=== PATIENT | male | born 1950 | race Caucasian/White ===

== ENCOUNTER 2018-08-28 15:06 | Emergency (ER) | payer BC, MEDICARE ==
[~2018-08-28] VITALS: Ht 172.7 cm; Wt 79.4 kg
--- NOTE | 2018-08-28 15:31 | PHYS DOC ---
Adult General Chief Complaint Chief Complaint: HEADACHE HPI HPI Patient is a 68 year old male who presents with fell 6 days ago on Wednesday when he was taking the trash outside in the last thing he remembers. Patient states that he remembers inside and he is all wet because a neighbor who brought him inside. Patient states he fell and he hit his head and he did have a lump any tender spot on the left back of his head but is no longer there. Patient now complains of a headache a 5 out of 10 and states occasionally when he stands he becomes dizzy but it clears quickly. Patient states that on Wednesday he vomited once and today he's vomited once. Patient states that the headache is a proper ache in the frontal area of his head mainly in the forehead area. (LUCY CASTRO LACQUER SPRAYER) Review of Systems Review of Systems Constitutional: Denies fever or chills [] Eyes: Denies change in visual acuity, redness, or eye pain [] HENT: Denies nasal congestion or sore throat [] Respiratory: Denies cough or shortness of breath [] Cardiovascular: No additional information not addressed in HPI [] GI: Denies abdominal pain. +nausea, +vomiting, denies bloody stools or diarrhea [] : Denies dysuria or hematuria [] Musculoskeletal: Slight left neck pain with movement. Denies back pain or joint pain [] Integument: Denies rash or skin lesions [] Neurologic: headache, denies focal weakness or sensory changes [] All other systems were reviewed and found to be within normal limits, except as documented in this note. (LUCY CASTRO APRN) Physical Exam Physical Exam Constitutional: Well developed, well nourished, no acute distress, non-toxic appearance. [] HENT: Normocephalic, atraumatic, bilateral external ears normal, oropharynx moist, no oral exudates, nose normal. [] Eyes: PERRLA, EOMI, conjunctiva normal, no discharge. [] Neck: Normal range of motion, no tenderness, supple, no stridor. [] Cardiovascular:Heart rate regular rhythm, no murmur [] Lungs & Thorax: Bilateral breath sounds clear to auscultation [] Abdomen: Bowel sounds normal, soft, no tenderness, no masses, no pulsatile masses. [] Skin: Warm, dry, no erythema, no rash. [] Back: No tenderness, no CVA tenderness. [] Extremities: No tenderness, no cyanosis, no clubbing, ROM intact, no edema. [] Neurologic: Alert and oriented X 3, normal motor function, normal sensory function, no focal deficits noted. [] Psychologic: Affect normal, judgement normal, mood normal. Normal Physical Exam [] (BAFUS,LUCY M LACQUER SPRAYER) Current Patient Data Vital Signs Vital Signs Date Time Temp Pulse Resp B/P (MAP) Pulse Ox O2 Delivery O2 Flow Rate FiO2 08/28/18 16:00 62 96 08/28/18 15:20 98.7 16 160/77 (104) Room Air 98.7 (BOYD,C9 [employer] DO) Lab Values Laboratory Tests Test 08/28/18 16:20 White Blood Count 13.1 x10^3/uL (4.0-11.0) H Red Blood Count 4.80 x10^6/uL (4.30-5.70) Hemoglobin 14.2 g/dL (13.0-17.5) Hematocrit 42.2 % (39.0-53.0) Mean Corpuscular Volume 88 fL (79-100) Mean Corpuscular Hemoglobin 30 pg (25-35) Mean Corpuscular Hemoglobin Concent 34 g/dL (31-37) Red Cell Distribution Width 13.2 % (11.5-14.5) Platelet Count 291 x10^3/uL (140-400) Neutrophils (%) (Auto) 83 % (31-73) H Lymphocytes (%) (Auto) 11 % (24-48) L Monocytes (%) (Auto) 6 % (0-9) Eosinophils (%) (Auto) 0 % (0-3) Basophils (%) (Auto) 0 % (0-3) Neutrophils # (Auto) 10.8 x10^3uL (1.8-7.7) H Lymphocytes # (Auto) 1.4 x10^3/uL (1.0-4.8) Monocytes # (Auto) 0.8 x10^3/uL (0.0-1.1) Eosinophils # (Auto) 0.0 x10^3/uL (0.0-0.7) Basophils # (Auto) 0.0 x10^3/uL (0.0-0.2) Prothrombin Time 13.7 SEC (11.7-14.0) Prothrombin Time INR 1.1 (0.8-1.1) Sodium Level 136 mmol/L (136-145) Potassium Level 3.8 mmol/L (3.5-5.1) Chloride Level 94 mmol/L (98-107) L Carbon Dioxide Level 30 mmol/L (21-32) Anion Gap 12 (6-14) Blood Urea Nitrogen 18 mg/dL (8-26) Creatinine 0.9 mg/dL (0.7-1.3) Estimated GFR (Cockcroft-Gault) 83.4 BUN/Creatinine Ratio 20 (6-20) Glucose Level 181 mg/dL (70-99) H Calcium Level 9.7 mg/dL (8.5-10.1) Total Bilirubin 1.4 mg/dL (0.2-1.0) H Aspartate Amino Transferase (AST) 15 U/L (15-37) Alanine Aminotransferase (ALT) 20 U/L (16-63) Alkaline Phosphatase 93 U/L (46-116) Troponin I Quantitative < 0.017 ng/mL (0.000-0.055) Total Protein 7.4 g/dL (6.4-8.2) Albumin 3.4 g/dL (3.4-5.0) Albumin/Globulin Ratio 0.9 (1.0-1.7) L Laboratory Tests 08/28/18 16:20 Laboratory Tests 08/28/18 16:20 (BHARTI BOYD DO) Lab Values Laboratory Tests Test 08/28/18 16:20 White Blood Count 13.1 x10^3/uL (4.0-11.0) H Red Blood Count 4.80 x10^6/uL (4.30-5.70) Hemoglobin 14.2 g/dL (13.0-17.5) Hematocrit 42.2 % (39.0-53.0) Mean Corpuscular Volume 88 fL (79-100) Mean Corpuscular Hemoglobin 30 pg (25-35) Mean Corpuscular Hemoglobin Concent 34 g/dL (31-37) Red Cell Distribution Width 13.2 % (11.5-14.5) Platelet Count 291 x10^3/uL (140-400) Neutrophils (%) (Auto) 83 % (31-73) H Lymphocytes (%) (Auto) 11 % (24-48) L Monocytes (%) (Auto) 6 % (0-9) Eosinophils (%) (Auto) 0 % (0-3) Basophils (%) (Auto) 0 % (0-3) Neutrophils # (Auto) 10.8 x10^3uL (1.8-7.7) H Lymphocytes # (Auto) 1.4 x10^3/uL (1.0-4.8) Monocytes # (Auto) 0.8 x10^3/uL (0.0-1.1) Eosinophils # (Auto) 0.0 x10^3/uL (0.0-0.7) Basophils # (Auto) 0.0 x10^3/uL (0.0-0.2) Prothrombin Time 13.7 SEC (11.7-14.0) Prothrombin Time INR 1.1 (0.8-1.1) Sodium Level 136 mmol/L (136-145) Potassium Level 3.8 mmol/L (3.5-5.1) Chloride Level 94 mmol/L (98-107) L Carbon Dioxide Level 30 mmol/L (21-32) Anion Gap 12 (6-14) Blood Urea Nitrogen 18 mg/dL (8-26) Creatinine 0.9 mg/dL (0.7-1.3) Estimated GFR (Cockcroft-Gault) 83.4 BUN/Creatinine Ratio 20 (6-20) Glucose Level 181 mg/dL (70-99) H Calcium Level 9.7 mg/dL (8.5-10.1) Total Bilirubin 1.4 mg/dL (0.2-1.0) H Aspartate Amino Transferase (AST) 15 U/L (15-37) Alanine Aminotransferase (ALT) 20 U/L (16-63) Alkaline Phosphatase 93 U/L (46-116) Troponin I Quantitative < 0.017 ng/mL (0.000-0.055) Total Protein 7.4 g/dL (6.4-8.2) Albumin 3.4 g/dL (3.4-5.0) Albumin/Globulin Ratio 0.9 (1.0-1.7) L Laboratory Tests 08/28/18 16:20 Laboratory Tests 08/28/18 16:20 (LUCY CASTRO APRN) EKG EKG Sinus Rhythm, Right Bundle Branch Block, No STEMI[] Interpretation Time: [address] Boyd (LUCY CASTRO APRN) Radiology/Procedures Radiology/Procedures CT head, cervical spine (LUCY CASTRO APRN) Impressions: [place] [id number] IMAGING REPORT Signed PATIENT: NATALIA WINKLER ACCOUNT: [id number] : 1950 LOCATION: ER AGE: 68 SEX: M EXAM STATUS: PRE ER ORD. PHYSICIAN: LUCY ACSTRO APRN REASON: fall/ W/ NURSE @ 1540 PROCEDURE: CHEST PA & LATERAL PA and lateral chest. HISTORY: Fall PA and lateral views were taken of the chest. There is no pneumothorax or pleural effusion. There is mild linear atelectasis in the left lung base without other infiltrates. There is no effusion. Heart is normal in size. IMPRESSION: 1. Poor inspiration with mild linear atelectasis. 2. No definite infiltrates. Electronically signed by: Jaguar Goldstein MD (08/28/2018 4:09 PM) [facility] DICTATED and SIGNED BY: JAGUAR GOLDSTEIN MD DATE: 08/28/[address] [address] IMAGING REPORT Signed PATIENT: NATALIA WINKLER ACCOUNT: [id number] : 1950 LOCATION: ER AGE: 68 SEX: M EXAM STATUS: REG ER ORD. PHYSICIAN: LUCY CASTRO APRN REASON: fall PROCEDURE: CT HEAD AND CERVICAL SPINE WO CT head without contrast: Reason for examination: Fell one week ago with head injury, loss of consciousness and headaches. Axial images were obtained through the brain. No contrast was administered. The ventricular systems are symmetric and not abnormally dilated considering patient's advanced age. No midline shift is seen. There is no evidence of intracranial hemorrhage, infarct, mass or edema. No abnormalities are seen at the visualized portions of the orbits. The paranasal sinuses and mastoid air cells are clear. There appears to be a linear nondisplaced fracture involving the left occipital bone. There appears to be a scalp hematoma in the left parietal convexity posteriorly. IMPRESSION: No acute intracranial abnormality evident. Nondisplaced linear skull fracture in the left occipital bone. Scalp hematoma in the left posterior parietal convexity. CT cervical spine without contrast: Helical images were obtained through the cervical spine from skull base to the thoracic apices. Reconstruction was performed in sagittal and coronal planes. No contrast was administered. The C1 ring is intact. The odontoid process appears to be intact and normally centered between the lateral masses of C1. The vertebral bodies of the cervical spine are normally aligned anteriorly and posteriorly with no acute fracture or subluxation seen. The posterior elements appear to be intact. There are some degenerative changes at the C6-7 disc level with hypertrophic spurring off the endplates with some hypertrophic spurs encroaching on the left neural foramen with severe stenosis. The remaining intervertebral discs are maintained. No other site of spinal stenosis is seen. IMPRESSION: No acute abnormality evident in the cervical spine. Severe degenerative spondylosis at the C6-7 disc level with hypertrophic spurs encroaching on the left neural foramen causing severe stenosis. Exposure: One or more of the following individualized dose reduction techniques were utilized for this examination: 1. Automated exposure control 2. Adjustment of the mA and/or kV according to patient size 3. Use of iterative reconstruction technique. Electronically signed by: Marya Fajardo MD (08/28/2018 4:22 PM) [facility] DICTATED and SIGNED BY: MARYA FAJARDO MD DATE: 08/28/18 1609 (LUCY CATSRO APRN) Course & Med Decision Making Course & Med Decision Making Patient is a 68 year old male who presents with fell 6 days ago on Wednesday when he was taking the trash outside in the last thing he remembers. Patient states that he remembers inside and he is all wet because a neighbor who brought him inside. Patient states he fell and he hit his head and he did have a lump any tender spot on the left back of his head but is no longer there. Patient now complains of a headache a 5 out of 10 and states occasionally when he stands he becomes dizzy but it clears quickly. Patient states that on Wednesday he vomited once and today he's vomited once. Patient states that the headache is a proper ache in the frontal area of his head mainly in the forehead area. The only type of blood thinner the patient is on is a baby aspirin. Patient states he took ibuprofen today. Patient refuses any pain medication or nausea medicine this time. Patient states that his neck had been hurting him but that has gotten better too. Patient has no spinal focal bony tenderness and has full range of motion of his neck. PERRLA. Neurologically intact. Ambulatory with a steady gait. Vital signs within normal limits. Lungs are clear in all lobes. Abdomen is soft and nontender. Speaks in full clear sentences. Equal strength in all extremities. No nystagmus. Denies visual changes. Denies any other syncopal episodes since the fall. Denies any focal weaknesses or numbness and tingling. Denies chest pain, soa, syncope, numbness or tingling, pain with movement other than specified earlier. There is no bruising or deformity, tenderness or bumps felt on the patient's head anywhere or on his cervical, thoracic, lumbar spine. Alert and oriented. Skin pink warm and dry. Mucous membranes are moist. Patient and deny being forgetful or repeating himself since the fall. Patient is quick to answer all questions correctly. Chest xray shows 1. Poor inspiration with mild linear atelectasis. 2. No definite infiltrates. CT Head and cervical spine show No acute intracranial abnormality evident. Nondisplaced linear skull fracture in the left occipital bone. Scalp hematoma in the left posterior parietal convexity. No acute abnormality evident in the cervical spine. Severe degenerative spondylosis at the C6-7 disc level with hypertrophic spurs encroaching on the left neural foramen causing severe stenosis. 1645: I have spoken to neurology surgeon Dr Chao's Nurse Practitioner Lisa who called Dr Chao and told him about the patient and the CT findings. Dr Chao states that he wants to have the patient follow-up next week and that he can go home but to keep all activities to a minimum and rest until he is seen. Patient will probably need a outpatient MRI for follow-up care. Nurse practitioner Lisa stated that she would call the patient tomorrow to set up an appointment. I will also give the patient the office number. Patient is stable and will be discharged home. Patient neurologic status remains unchanged. (LUCY CASTRO APRN) Dragon Disclaimer Dragon Disclaimer This electronic medical record was generated, in whole or in part, using a voice recognition dictation system. (LUCY CASTRO APRN) NIHSS Stroke Scale NIH Stroke Scale: NIH Stroke Scale Response (Comments) Value Level of Consciousness: 0 Alert/Responsive 0 LOC Questions: 0 Answers both correctly 0 LOC Commands: 0 Performs both tasks 0 Best Gaze: 0 Normal 0 Visual: 0 No visual loss 0 Facial Palsy: 0 Normal, symmetrical 0 Motor - Left Arm 0 No drift 0 Motor - Right Arm 0 No drift 0 Motor - Left Leg 0 No drift 0 Motor: Right Leg 0 No drift 0 Limb Ataxia: 0 Absent 0 Sensory: 0 No loss 0 Best Language: 0 Normal 0 Dysathria: 0 Normal 0 Extinction and Inattention: 0 Normal 0 Total 0 Departure Departure Impression: Primary Impression: Head injury Additional Impression: Skull fracture Disposition: 01 HOME, SELF-CARE Condition: STABLE Referrals: Jeremiah CASTREJON MD (PCP) Patient Instructions: Head Injury, Adult, Skull Fracture, Uncomplicated, Adult Additional Instructions: The neurosurgeon's office will call you tomorrow for a follow-up appointment and schedule for a outpatient MRI. If you do not hear from her tomorrow call . Do not do any activity around the house or heavy lifting. Complete rest. If he began to have intractable head pain, constant dizziness, syncope, intractable vomiting come to the emergency room immediately. Scripts Ondansetron (ONDANSETRON ODT) 4 Mg Tab.rapdis 1 TAB PO PRN Q6-8HRS, #16 TAB Prov: LUCY CASTRO APRN 08/28/18 Hydrocodone/Apap 5-325 (NORCO 5-325 TABLET) 1 Each Tablet 1 TAB PO PRN Q6HRS PRN for PAIN, #8 TAB 0 Refills Prov: LUCY CASTRO APRN 08/28/18 Attending Signature Attending Signature I have reviewed the PA/VIDEO GAME DESIGNER's note and plan of care. I was available for consultation as needed during the patient's visit in the emergency department. I agree with the clinical impression, plan, and disposition. (BHARTI BOYD DO) Problem Qualifiers Primary Impression: Head injury Encounter type: initial encounter Qualified Codes: S09.90XA - Unspecified injury of head, initial encounter Additional Impression: Skull fracture Encounter type: initial encounter Skull bone/location: occipital bone Fracture type: closed Occipital fracture type: unspecified fracture of occiput Laterality: left Qualified Codes: S02.119A - Unspecified fracture of occiput, initial encounter for closed fracture LUCY CASTRO APRN Aug 28, 2018 15:31 BHARTI BOYD DO Aug 29, 2018 17:57
[2018-08-28 16:00] VITALS: BP 153/77
--- NOTE | 2018-08-28 16:12 | RAD ---
PA and lateral chest. HISTORY: Fall PA and lateral views were taken of the chest. There is no pneumothorax or pleural effusion. There is mild linear atelectasis in the left lung base without other infiltrates. There is no effusion. Heart is normal in size. IMPRESSION: 1. Poor inspiration with mild linear atelectasis. 2. No definite infiltrates. Electronically signed by: Jaguar Goldstein MD (08/28/2018 4:09 PM) [facility]
--- NOTE | 2018-08-28 16:25 | RAD ---
CT head without contrast: Reason for examination: Fell one week ago with head injury, loss of consciousness and headaches. Axial images were obtained through the brain. No contrast was administered. The ventricular systems are symmetric and not abnormally dilated considering patient's advanced age. No midline shift is seen. There is no evidence of intracranial hemorrhage, infarct, mass or edema. No abnormalities are seen at the visualized portions of the orbits. The paranasal sinuses and mastoid air cells are clear. There appears to be a linear nondisplaced fracture involving the left occipital bone. There appears to be a scalp hematoma in the left parietal convexity posteriorly. IMPRESSION: No acute intracranial abnormality evident. Nondisplaced linear skull fracture in the left occipital bone. Scalp hematoma in the left posterior parietal convexity. CT cervical spine without contrast: Helical images were obtained through the cervical spine from skull base to the thoracic apices. Reconstruction was performed in sagittal and coronal planes. No contrast was administered. The C1 ring is intact. The odontoid process appears to be intact and normally centered between the lateral masses of C1. The vertebral bodies of the cervical spine are normally aligned anteriorly and posteriorly with no acute fracture or subluxation seen. The posterior elements appear to be intact. There are some degenerative changes at the C6-7 disc level with hypertrophic spurring off the endplates with some hypertrophic spurs encroaching on the left neural foramen with severe stenosis. The remaining intervertebral discs are maintained. No other site of spinal stenosis is seen. IMPRESSION: No acute abnormality evident in the cervical spine. Severe degenerative spondylosis at the C6-7 disc level with hypertrophic spurs encroaching on the left neural foramen causing severe stenosis. Exposure: One or more of the following individualized dose reduction techniques were utilized for this examination: 1. Automated exposure control 2. Adjustment of the mA and/or kV according to patient size 3. Use of iterative reconstruction technique. Electronically signed by: Theodora Castro MD (08/28/2018 4:22 PM) [facility]
[2018-08-28 16:27] LABS: BASO % 0 % (0-3); EOS % 0 % (0-3); HEMATOCRIT 42.2 % (39.0-53.0); HEMOGLOBIN 14.2 g/dL (13.0-17.5); LYMPH # 1.4 x10^3/uL (1.0-4.8); LYMPH % 11 % (24-48); MEAN CORPUSCULAR HEMOGLOBIN 30 pg (25-35); MEAN CORPUSCULAR HGB CONC 34 g/dL (31-37); MEAN CORPUSCULAR VOLUME 88 fL (79-100); MONO # 0.8 x10^3/uL (0.0-1.1); MONO % 6 % (0-9); NEUT # 10.8 x10^3uL (1.8-7.7); NEUT % 83 % (31-73); PLATELET COUNT 291 x10^3/uL (140-400); RED CELL DISTRIBUTION WIDTH 13.2 % (11.5-14.5); WHITE BLOOD COUNT 13.1 x10^3/uL (4.0-11.0)
[2018-08-28 16:35] LABS: CALCIUM 9.7 mg/dL (8.5-10.1); CREATININE 0.9 mg/dL (0.7-1.3); GFR 83.4; POTASSIUM 3.8 mmol/L (3.5-5.1)
[2018-08-28 16:36] LABS: PROTHROMBIN TIME PATIENT 13.7 SEC (11.7-14.0)
[2018-08-28 16:40] LABS: ALBUMIN 3.4 g/dL (3.4-5.0); ALBUMIN/GLOBULIN RATIO 0.9 (1.0-1.7); TOTAL BILIRUBIN 1.4 mg/dL (0.2-1.0); TOTAL PROTEIN 7.4 g/dL (6.4-8.2)
[2018-08-28] MEDS ORDERED: ONDA4TAB12 PO (17:15)
[2018-08-28] MEDS ORDERED: HYDR-3164 PO (17:15)
--- NOTE | 2018-08-29 14:37 | EKG ---
[facility] [address] [place] [address] Test Date: 2018-08-28 Test Time: 15:37:35 Pat Name: NATALIA WINKLER Department: Room: Gender: Chief Librarian Extension Department: : 1950 Requested By: LUCY CASTRO Order Number: [id number] Reading MD: Zaheer Barrios Measurements Intervals [place] Rate: P: ME: QRS: QRSD: T: QT: QTc: Interpretive Statements No previous ECG available for comparison Electronically Signed On 08-31-2018 9:01:48 MANAGER USER INTERFACE by Zaheer Barrios
== END 2018-08-28 17:30 | disposition home or self-care (01) ==
LOC: ER 15:06
DX: S02.119A Unspecified fracture of occiput, initial encounter for closed fracture (principal); M54.2 Cervicalgia; R42 Dizziness and giddiness; Z79.82 Long term (current) use of aspirin; W18.09XA Striking against other object with subsequent fall, initial encounter; Y93.89 Activity, other specified; Y92.89 Other specified places as the place of occurrence of the external cause; Y99.8 Other external cause status
CPT/HCPCS: 36415; 70450; 71046; 72125; 80053; 84484; 85025; 85610; 93005; 99284-25